=== PATIENT | male | born 1970 | race Hispanic/Latino ===

== ENCOUNTER 2020-10-08 14:43 | Inpatient (IN) | payer BC, MEDICAID ==
[~2020-10-08] VITALS: Ht 175.3 cm; Wt 135.3 kg
[~2020-10-08 14:43] MED LIST: ALBU1.252 IH; AMLO-258 PO; ASPI-1197 PO; FLUT1BLS3 IH; IBUP-2071 PO; IRBE75TA9 PO; LORA-192 PO; PARO10TA71 PO
[2020-10-08 16:20] VITALS: BP 138/79
[2020-10-08] MEDS ORDERED: MORPHINE 2 MG SYG IVP PRN (17:00)
[2020-10-08 20:00] VITALS: BP 110/64
[2020-10-08] MEDS: 0.9%NACL 50ML IV SCH (20:10)
[2020-10-08] MEDS: ZOSYN 3.375GM +NS 50ML IV SCH (20:10)
[2020-10-08] MEDS ORDERED: ZOLPIDEM TARTRATE 5 MG TAB PO PRN (20:30)
[2020-10-08] MEDS: FAMOTIDINE 20MG VIAL IV SCH (21:07)
[2020-10-08 22:09] LABS: EOSINOPHILS % (AUTO) 2.3 % (0.0-8.0); HEMATOCRIT 42.9 % (42-54); MEAN CORPUSCULAR HEMOGLOBIN 33.5 pg (27.0-33.0); MEAN CORPUSCULAR HGB CONC 34.7 g/dL (32.0-36.0); MEAN CORPUSCULAR VOLUME 96.4 fL (79-99); MONOCYTES % (AUTO) 10.7 % (3.0-13.0); NEUTROPHILS % (AUTO) 67.6 % (40.0-77.0); PLATELET COUNT (AUTO) 437 K/uL (130-400); RED BLOOD CELL COUNT(AUTO) 4.45 MIL/uL (4.50-6.20); RED CELL DISTRIBUTION WIDTH 12.5 % (11.0-15.5); WHITE BLOOD COUNT (AUTO) 8.3 K/uL (4.8-10.8)
[2020-10-08 22:21] LABS: INR 1.05 (0.85-1.15); PROTHROMBIN TIME 11.4 SEC (9.6-11.6)
[2020-10-08 22:23] LABS: PARTIAL THROMBOPLASTIN TIME 25.8 SEC (26.3-35.5)
[2020-10-08 22:26] LABS: ALBUMIN 3.1 g/dL (3.5-5.0); BILIRUBIN,TOTAL 0.6 mg/dL (0.2-1.0); CREATININE 0.8 mg/dL (0.5-1.5); POTASSIUM 3.5 mmol/L (3.5-5.1); TOTAL PROTEIN, SERUM 7.2 g/dL (6.0-8.3)
[2020-10-09] VITALS: BP 103/58
[2020-10-09] MEDS: 0.9%NACL 50ML IV SCH ×3 (02:00→17:25)
[2020-10-09] MEDS: ZOSYN 3.375GM +NS 50ML IV SCH ×3 (03:24→17:25)
[2020-10-09] MEDS: LACTATED RINGERS 1000ML 1,000 ML IV SCH ×2 (03:25→16:09)
[2020-10-09 03:43] LABS: APPEARANCE,URINE Clear (CLEAR); BILIRUBIN,URINE Negative (NEGATIVE); COLOR,URINE Yellow (YELLOW); GLUCOSE, URINE (UA) Negative (NEGATIVE); KETONES,URINE Negative (NEGATIVE); LEUKOCYTE ESTERASE ,URINE Small (NEGATIVE); NITRATE,URINE Negative (NEGATIVE); OCCULT BLOOD,URINE Negative (NEGATIVE); PH,URINE 5.5 (5.0-8.0); PROTEIN,URINE Negative (NEGATIVE)
[2020-10-09 04:00] VITALS: BP 102/76
[2020-10-09 04:28] LABS: BACTERIA,URINE Rare /HPF (None Seen); RBC,URINE None Seen /HPF (0-1); SQUAMOUS EPITHELIAL CELL,UR 0-2 /HPF (0-2); WBC,URINE 0-1 /HPF (0-1)
[2020-10-09 07:32] VITALS: BP 104/65
[2020-10-09] MEDS: FAMOTIDINE 20MG VIAL IV SCH ×2 (10:03→19:39)
[2020-10-09 10:52] VITALS: BP 109/63
[2020-10-09 15:15] VITALS: BP 111/61
[2020-10-09] MEDS: POTASSIUM CHLORIDE 10MEQ SR TAB PO SCH (17:25)
[2020-10-09 20:00] VITALS: BP 107/70
[2020-10-10 00:10] VITALS: BP 97/68
[2020-10-10] MEDS: ZOSYN 3.375GM +NS 50ML IV SCH ×3 (00:51→17:49)
[2020-10-10] MEDS: 0.9%NACL 50ML IV SCH ×3 (00:52→17:49)
[2020-10-10] MEDS: LACTATED RINGERS 1000ML 1,000 ML IV SCH ×2 (01:58→17:49)
[2020-10-10 04:00] VITALS: BP 94/68
[2020-10-10 04:44] LABS: EOSINOPHILS % (AUTO) 4.2 % (0.0-8.0); HEMATOCRIT 43.6 % (42-54); LYMPHOCYTES % (AUTO) 12.8 % (21.0-51.0); MEAN CORPUSCULAR HEMOGLOBIN 33.3 pg (27.0-33.0); MEAN CORPUSCULAR HGB CONC 33.9 g/dL (32.0-36.0); MONOCYTES % (AUTO) 9.4 % (3.0-13.0); NEUTROPHILS % (AUTO) 70.8 % (40.0-77.0); PLATELET COUNT (AUTO) 358 K/uL (130-400); RED BLOOD CELL COUNT(AUTO) 4.45 MIL/uL (4.50-6.20); RED CELL DISTRIBUTION WIDTH 12.6 % (11.0-15.5); WHITE BLOOD COUNT (AUTO) 8.8 K/uL (4.8-10.8)
[2020-10-10 04:58] LABS: CREATININE 0.9 mg/dL (0.5-1.5); CRP QUANTITATIVE 12.4 mg/L (0.00-9.0); POTASSIUM 3.9 mmol/L (3.5-5.1)
[2020-10-10 07:30] VITALS: BP 103/67
[2020-10-10] MEDS: FAMOTIDINE 20MG VIAL IV SCH ×2 (08:52→21:41)
[2020-10-10 11:00] VITALS: BP 104/74
[2020-10-10] MEDS ORDERED: LIDOCAINE HCL 2% VISCOUS 15 ML UDCUP ONE (12:00)
[2020-10-10] MEDS ORDERED: LIDOCAINE/PRILOCAINE CREAM 5GM TUBE TP ONE (12:01)
[2020-10-10] MEDS ORDERED: IOHEXOL-350 50ML VIAL IV ONE (13:09)
[2020-10-10] MEDS: POTASSIUM CHLORIDE 10MEQ SR TAB PO SCH (14:24)
[2020-10-10 15:40] VITALS: BP 112/82
[2020-10-10 20:00] VITALS: BP 105/70
[2020-10-11] VITALS (7 sets, daily range): BP systolic 98–142; BP diastolic 53–75
[2020-10-11] MEDS: LACTATED RINGERS 1000ML 1,000 ML IV SCH ×3 (01:58→20:28)
[2020-10-11] MEDS: ZOSYN 3.375GM +NS 50ML IV SCH ×3 (01:58→20:28)
[2020-10-11] MEDS: 0.9%NACL 50ML IV SCH ×3 (02:02→20:27)
[2020-10-11 05:35] LABS: BASOPHILS % (AUTO) 0.9 % (0.0-5.0); EOSINOPHILS % (AUTO) 4.5 % (0.0-8.0); LYMPHOCYTES % (AUTO) 11.9 % (21.0-51.0); MEAN CORPUSCULAR HEMOGLOBIN 33.3 pg (27.0-33.0); MEAN CORPUSCULAR HGB CONC 34.1 g/dL (32.0-36.0); MEAN CORPUSCULAR VOLUME 97.5 fL (79-99); MONOCYTES % (AUTO) 10.2 % (3.0-13.0); NEUTROPHILS % (AUTO) 71.1 % (40.0-77.0); PLATELET COUNT (AUTO) 285 K/uL (130-400); RED CELL DISTRIBUTION WIDTH 12.5 % (11.0-15.5); WHITE BLOOD COUNT (AUTO) 6.6 K/uL (4.8-10.8)
[2020-10-11 05:46] LABS: CREATININE 0.7 mg/dL (0.5-1.5); CRP QUANTITATIVE 13.4 mg/L (0.00-9.0); POTASSIUM 3.8 mmol/L (3.5-5.1)
[2020-10-11] MEDS: FAMOTIDINE 20MG VIAL IV SCH ×2 (08:24→20:53)
[2020-10-11] MEDS: POTASSIUM CHLORIDE 10MEQ SR TAB PO SCH (16:59)
[2020-10-12] MEDS: ZOSYN 3.375GM +NS 50ML IV SCH ×3 (02:03→18:20)
[2020-10-12] MEDS: 0.9%NACL 50ML IV SCH ×3 (02:03→18:20)
[2020-10-12 03:50] VITALS: BP 138/79
[2020-10-12] MEDS: LACTATED RINGERS 1000ML 1,000 ML IV SCH (04:30)
[2020-10-12 07:03] LABS: BASOPHILS % (AUTO) 0.8 % (0.0-5.0); EOSINOPHILS % (AUTO) 4.7 % (0.0-8.0); HEMATOCRIT 38.4 % (42-54); LYMPHOCYTES % (AUTO) 12.8 % (21.0-51.0); MEAN CORPUSCULAR HGB CONC 33.9 g/dL (32.0-36.0); MEAN CORPUSCULAR VOLUME 97.5 fL (79-99); MONOCYTES % (AUTO) 9.3 % (3.0-13.0); NEUTROPHILS % (AUTO) 71.4 % (40.0-77.0); PLATELET COUNT (AUTO) 162 K/uL (130-400); RED BLOOD CELL COUNT(AUTO) 3.94 MIL/uL (4.50-6.20); RED CELL DISTRIBUTION WIDTH 12.4 % (11.0-15.5); WHITE BLOOD COUNT (AUTO) 6.2 K/uL (4.8-10.8)
[2020-10-12 07:17] LABS: CREATININE 0.5 mg/dL (0.5-1.5); CRP QUANTITATIVE 11.1 mg/L (0.00-9.0)
[2020-10-12 07:32] VITALS: BP 124/81
[2020-10-12] MEDS: FAMOTIDINE 20MG VIAL IV SCH ×2 (09:41→20:29)
[2020-10-12 11:21] VITALS: BP 127/82
[2020-10-12 15:53] VITALS: BP 129/84
[2020-10-12] MEDS: POTASSIUM CHLORIDE 10MEQ SR TAB PO SCH (17:00)
[2020-10-12 19:58] VITALS: BP 128/83
[2020-10-12 23:59] VITALS: BP 110/65
[2020-10-13] MEDS: 0.9%NACL 50ML IV SCH ×3 (03:04→17:59)
[2020-10-13] MEDS: ZOSYN 3.375GM +NS 50ML IV SCH ×3 (03:04→17:59)
[2020-10-13] MEDS: LACTATED RINGERS 1000ML 1,000 ML IV SCH ×2 (03:05→09:30)
[2020-10-13 04:00] VITALS: BP 102/61
[2020-10-13 07:50] VITALS: BP 117/76
[2020-10-13] MEDS: FAMOTIDINE 20MG VIAL IV SCH ×2 (09:24→19:51)
[2020-10-13 12:05] VITALS: BP 134/77
[2020-10-13 15:50] VITALS: BP 114/75
[2020-10-13 20:02] VITALS: BP 120/76
== END 2020-10-13 20:44 | DRG 394 ==
LOC: 3AH 16:06
PROVIDERS: ADMIT Internal Medicine; ATTEND Internal Medicine
PROC: BW111ZZ Fluoroscopy of Abdomen and Pelvis using Low Osmolar Contrast (ICD-10-PCS; principal; 2020-10-10)
DX: K60.4 Rectal fistula (principal); Z68.41 Body mass index [BMI] 40.0-44.9, adult; L02.31 Cutaneous abscess of buttock; L40.9 Psoriasis, unspecified; E66.01 Morbid (severe) obesity due to excess calories; R53.81 Other malaise; Z83.3 Family history of diabetes mellitus; Z82.49 Family history of ischemic heart disease and other diseases of the circulatory system
CPT/HCPCS: 36415; 76080; 80048; 80053; 81001; 84145; 85025; 85610; 85651; 85730; 86140; 86850; 86900; 86901; 93005; G0378; J2543; J3490; J7120; Q9967

== ENCOUNTER 2022-03-28 09:00 | Emergency (ER) | payer BC, MEDICAID ==
[~2022-03-28] VITALS: Ht 175.3 cm; Wt 158.8 kg
[~2022-03-28 09:00] MED LIST changes: -ALBU1.252 IH; -AMLO-258 PO; -IBUP-2071 PO; -IRBE75TA9 PO; -LORA-192 PO
[2022-03-28] MEDS ORDERED: CEPH500B PO (10:46)
[2022-03-28] MEDS ORDERED: CEFTRIAXONE 1G VIAL IM ONE (11:00)
[2022-03-28 11:10] VITALS: BP 148/84
== END 2022-03-28 11:40 | disposition home or self-care (01) ==
LOC: EDH 09:00
DX: K61.1 Rectal abscess (principal); Z79.82 Long term (current) use of aspirin
CPT/HCPCS: 99284; 96372; J0696